=== PATIENT | female | born 2000 | race Two or more races ===

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

== ENCOUNTER 2020-07-22 11:53 | Emergency (ER) | payer MEDICAID ==
[~2020-07-22] VITALS: Ht 154.9 cm; Wt 57.2 kg
[2020-07-22 12:01] VITALS: BP 120/83
== END 2020-07-22 15:15 | disposition home or self-care (01) ==
LOC: ER 11:53
DX: S00.03XA Contusion of scalp, initial encounter (principal); S80.02XA Contusion of left knee, initial encounter; S80.01XA Contusion of right knee, initial encounter; Y08.89XA Assault by other specified means, initial encounter; Y93.89 Activity, other specified; Y92.89 Other specified places as the place of occurrence of the external cause; Y99.8 Other external cause status
CPT/HCPCS: 70450